=== PATIENT | male | born 1945 | race Caucasian/White ===

== ENCOUNTER → 2024-09-25 14:22 | Outpatient (BNVA) | payer MEDICARE, SELFPAY | PROVIDERS: PCP Physician Assistant; Referring Provider Physician Assistant; Visit Provider Student in an Organized Health Care Education/Training Program | DX: M17.12 Unilateral primary osteoarthritis, left knee (principal); S83.282A Other tear of lateral meniscus, current injury, left knee, initial encounter; X58.XXXA Exposure to other specified factors, initial encounter | CPT/HCPCS: 20610; 99203; J1010 ==

== ENCOUNTER 2024-10-06 01:16 | Outpatient (CLI) | payer MEDICARE, SELFPAY ==
--- NOTE | 2024-10-06 06:30 | DI.MRI_ITS ---
Exam(s) MR LOWER JOINT LT WO EXAM: MR LOWER JOINT LT WO CLINICAL HISTORY: PAIN,tear lateral meniscus lt knee,s83.282a. TECHNIQUE: Multiplanar multisequence MRI was performed. COMPARISON: CR XR KNEE 3V LT from 01/04/2024 FINDINGS: BONES: There is no fracture or contusion pattern. Bony spur noted at the anterior proximal tibia, a nterior to the ACL insertion. Spurs from the lateral femoral condyle and lateral tibial plateau. JOINTS: A moderate-sized joint effusion is present. Articular cartilage: Patellofemoral joint: Cartilage thinning over the lateral patellar facet. No extension down to bone . Medial femoral tibial joint: Articular mild cartilage thinning and irregularity. Lateral femoral tibial joint: Severe thinning of the cartilage extending down to involving underlyin g bone. LIGAMENTS/TENDONS: Anterior Cruciate: Unremarkable. Posterior Cruciate: Unremarkable. Medial Collateral:Unremarkable. Lateral Collateral ligament complex: Unremarkable. Extensor mechanism: Unremarkable. Medial retinaculum: Unremarkable. Lateral retinaculum: Unremarkable. Popliteus: Unremarkable. MENISCI: The medial meniscus shows degenerative signal changes greater in the body. The lateral meniscus shows focal linear tear in the anterior horn with adjacent small meniscal cyst. The body and lateral portion of the posterior horn are extremely diminutive. No displaced fragment s are identified. MUSCLES: Unremarkable. SOFT TISSUES: Metallic artifact is noted in the soft tissues lateral to the patellar tendon. IMPRESSION: Severe degenerative changes of the lateral femoral tibial joint with severe degenerative changes and superimposed tear of the lateral meniscus. DATA REPOSITORY:
== END 2024-10-06 01:36 ==
LOC: DI 01:17
PROVIDERS: PCP Physician Assistant; Visit Provider Student in an Organized Health Care Education/Training Program
DX: S83.282D Other tear of lateral meniscus, current injury, left knee, subsequent encounter (principal); X58.XXXD Exposure to other specified factors, subsequent encounter
CPT/HCPCS: 73721

== ENCOUNTER → 2024-10-27 09:01 | Outpatient (BNVA) | payer MEDICARE, SELFPAY | PROVIDERS: PCP Physician Assistant; Referring Provider Physician Assistant; Visit Provider Student in an Organized Health Care Education/Training Program | DX: S83.282D Other tear of lateral meniscus, current injury, left knee, subsequent encounter (principal); X58.XXXD Exposure to other specified factors, subsequent encounter; M17.12 Unilateral primary osteoarthritis, left knee | CPT/HCPCS: 99213 ==

== ENCOUNTER → 2024-12-29 10:18 | Outpatient (BNVA) | payer MEDICARE, SELFPAY | PROVIDERS: PCP Physician Assistant; Referring Provider Physician Assistant; Visit Provider Student in an Organized Health Care Education/Training Program | DX: M17.12 Unilateral primary osteoarthritis, left knee (principal); S83.282A Other tear of lateral meniscus, current injury, left knee, initial encounter; X58.XXXA Exposure to other specified factors, initial encounter | CPT/HCPCS: 99213 ==

== ENCOUNTER 2025-02-03 16:37 | Outpatient (REF) | payer MEDICARE, SELFPAY ==
[2025-02-03 16:47] LABS: ALT 36 U/L (16-63); AST 30 U/L (15-37); Albumin 4.1 g/dL (3.4-5.0); Alkaline Phosphatase 63 U/L (46-116); Anion Gap 9.5 mmol/L (3-11); BUN 21 mg/dL (7-18); Bilirubin, Total 0.7 mg/dL (0.2-1.0); CO2 28.5 mmol/L (21.0-32.0); Calcium 9.6 mg/dL (8.5-10.1); Calculated LDL 96 mg/dL (<100); Chloride 103 mmol/L (98-107); Cholesterol 192 mg/dL (<200); Estimated GFR 76.56 (mL/min/1.73m2); Glucose 96 mg/dL (74-106); HDL Cholesterol 70 mg/dL (>or=40); Potassium 3.9 mmol/L (3.5-5.1); Sodium 141 mmol/L (136-145); Total Protein 6.9 g/dL (6.4-8.2); Triglyceride 134 mg/dL (<150)
== END 2025-02-03 16:38 | disposition home or self-care (01) ==
LOC: NCHCN 16:37
PROVIDERS: PCP Physician Assistant; Visit Provider Physician Assistant
DX: E78.5 Hyperlipidemia, unspecified (principal)
CPT/HCPCS: 80053; 80061

== ENCOUNTER 2025-04-27 03:25 | Outpatient (CLI) | payer MEDICARE, SELFPAY ==
[2025-04-27 10:58] LABS: HCT 42.2 % (40.0-50.0); HGB 14.2 g/dL (13.5-17.5); MCH 30.6 pg (27.0-33.0); MCHC 33.6 % (32.0-36.0); MCV 91 fL (80-95); MPV 11.0 fL (8.0-11.0); Platelet Count 160 10^3/uL (130-400); RBC 4.64 10^6/uL (4.36-5.78); RDW 13.9 % (11.8-14.1); RDW-SD 46.4 fL; WBC 7.53 10^3/uL (4.4-10.8)
[2025-04-27 11:55] LABS: Anion Gap 9.8 mmol/L (3-11); BUN 26 mg/dL (7-18); CO2 26.2 mmol/L (21.0-32.0); Calcium 9.4 mg/dL (8.5-10.1); Chloride 104 mmol/L (98-107); Glucose 102 mg/dL (74-106); Potassium 4.2 mmol/L (3.5-5.1); Sodium 140 mmol/L (136-145)
== END 2025-04-27 03:26 | disposition home or self-care (01) ==
LOC: LBO 03:25
PROVIDERS: PCP Physician Assistant; Visit Provider Student in an Organized Health Care Education/Training Program
DX: Z01.818 Encounter for other preprocedural examination (principal); M17.12 Unilateral primary osteoarthritis, left knee
CPT/HCPCS: 36415; 80048; 85027

== ENCOUNTER 2025-04-27 11:58 | Outpatient (CLI) | payer MEDICARE, SELFPAY ==
--- NOTE | 2025-04-27 11:00 | DI.RAD_ITS ---
Exam(s) XR KNEE LT 1V XR STANDING ALIGNMENT EXAM: XR STANDING ALIGNMENT and XR knee LT 1 V CLINICAL HISTORY: TKR Planning. TECHNIQUE: 2D digital imaging was performed. Five images were obtained. COMPARISON: CR XR KNEE COMPLETE MIN 4V LT from 11/17/2021 CR XR KNEE 3V LT from 01/04/2024 CR XR KNEE LT 1V from 04/27/2025 FINDINGS: BONES: There is mild joint space narrowing of the hips bilaterally. In the right knee, small osteophytes are seen in the lateral femoral tibial joint. In the left knee, there is moderate narrowing of the lateral femoral tibial joint. There osteophytes seen at the posterior patella and the lateral femoral tibial joint. There is a small joint effusion. There is a small spurs seen at the anterior tibial plateau. The ankles are well maintained.There is no significant leg length discrepancy. SOFT TISSUE: Normal. IMPRESSION: Moderately severe degenerative changes seen in the left knee. DATA REPOSITORY: RADIATION DOSE DELIVERED:
== END 2025-04-27 11:59 | disposition home or self-care (01) ==
LOC: DIORS 11:58
PROVIDERS: PCP Physician Assistant; Visit Provider Physician Assistant
DX: Z01.818 Encounter for other preprocedural examination (principal); M17.12 Unilateral primary osteoarthritis, left knee
CPT/HCPCS: 99024; 73560; 77073

== ENCOUNTER 2025-05-06 07:11 | Day surgery (SDC) | payer MEDICARE, SELFPAY ==
--- NOTE | 2025-05-06 07:16 | W.PM.DSUDISC ---
Date of service: 05/06/25 Discharge Plan Disposition Patient Disposition: Home Condition: Good Discharge Details Reason For Visit: L TKR Attending Provider: Juvencio Zavaleta Primary Care Provider: Mark Zimmerman Home Meds and New Rx's Prescriptions: New celecoxib 200 mg capsule 200 mg PO BID Qty: 60 0RF aspirin 81 mg tablet,delayed release (DR/EC) 81 mg PO BID Qty: 60 0RF acetaminophen 500 mg tablet 1,000 mg PO TID Qty: 90 3RF pantoprazole 40 mg tablet,delayed release (DR/EC) 40 mg PO DAILY Qty: 14 0RF dexamethasone 4 mg tablet 4 mg PO DAILY Qty: 2 0RF docusate sodium 100 mg capsule 100 mg PO BID PRNQty: 28 0RF gabapentin 300 mg capsule 300 mg PO QHS Qty: 14 0RF oxycodone 5 mg tablet 5 mg PO Q4H PRNQty: 18 0RF Continued amlodipine 5 mg tablet 5 mg PO DAILY Patient Comments: Per pt.states he takes this at noon atorvastatin 40 mg tablet 40 mg PO DAILY finasteride 5 mg tablet 5 mg PO DAILY albuterol sulfate 90 mcg/actuation HFA aerosol inhaler 2 puff inhalation Q6H PRN losartan 25 mg tablet 25 mg PO DAILY No Action celecoxib [Celebrex] 200 mg capsule 200 mg PO DAILY aspirin [Aspirin Childrens] 81 mg tablet,chewable 81 mg PO BID Discharge Instructions Additional Instructions: Total Knee Discharge Instructions Activity: The most important activity is to walk and to work on gentle motion (both flexion and extension). You should try to take short walks a few times a day. It is important that when resting you work on keeping the knee straight. Avoid putting a pillow behind the knee as this will encourage flexion. Work on range of motion exercises as provided by Physical Therapy. - Start outpatient physical therapy within 2 weeks. - You should wear the ARCADIO hose on both legs for 2 weeks. You may remove these at night. You may also use any compression sock in place of the ARCADIO hose. - Utilize [employer] to review exercises, see videos on exercises and obtain basic information pertaining to your surgery and your recovery. Dressing: Remove the Davi wrap by 2 days after your surgery and put on the ARCADIO stocking given to you from the hospital. Keep the surgical dressing (underneath the DAVI wrap) in place for at least one week. After the first week it may be removed and replaced with light gauze and tape or nothing. The wound and dressing may get wet after 3 days but avoid soaking the dressing or otherwise it will need to be changed. Many people prefer covering the dressing with cling wrap (saran wrap) to minimize it from getting soaked. If it gets wet, just pat dry. If it starts to peel off then it will need to be changed. Medications: - You should take Tylenol and anti-inflammatory Celebrex as your primary pain control medications. If the Celebrex is too expensive or not covered, please call the office for another alternative (Advil/Ibuprofen or Naproxen/Aleve) - You have been prescribed a stronger pain medication Oxycodone for breakthrough pain, take as needed as prescribed. - You have also been prescribed a stomach acid reduction agent Pantoprozole to help reduce stomach acid and reflux. - You have been prescribed Gabapentin to take at night for restlessness and nerve pain. - You will be taking Aspirin 81mg twice a day for DVT prevention unless instructed otherwise. - You have also been prescribed Decadron to take to control post-operative nausea and pain. You will start this tomorrow. - If you have constipation you should take Colace or Miralax (both azia-[id number]-noxzxxw). It takes most people 3-4 days to have a bowel movement. Follow-up: 2 weeks If you have any acute concerns or questions, please do not hesitate to contact the office at [phone]. You may contact Dr. Zavaleta with any questions after hours through the hospital at [phone] or on his cell phone at [phone]. Referrals: Juvencio Zavaleta MD [ [facility] STAFF PHYSICIAN, Orthopaedic Surgical] Equipment/Supplies: Walker Activity:: Activity as Tolerated Shower/Bathe:: 72 hours Diet:: As Tolerated Discharge Orders Discharge Orders: Discharge Order (Routine); Ordered 05/06/25 Ordered By: Chandrakant Ribeiro DS: Diagnosis Discharge Diagnosis (1) Osteoarthritis of left knee: Status: Acute
[2025-05-06 07:55] VITALS: BP 156/86; PULSE 71; RESP 18; TEMP 36.5; O2SAT 96
--- NOTE | 2025-05-06 08:00 | RT.EKG_ITS ---
APPROVED REPORT Exam: Resting ECG Reason for Exam: New murmur Patient Location: O HR:57 bpm ECG Measurements Heart Rate 57 AXIS AK 212 P -8 QRSd 150 QRS 37 QT 466 T 20 QTc 452 Conclusion Sinus bradycardia...rate< 60 Ventricular premature complex...V complex w/ short R-R interval Borderline prolonged AK interval...AK >212, V-rate 50- 90 Right bundle branch block...QRSd>120, terminal axis(90,270)
--- NOTE | 2025-05-06 08:56 | PDOC.ANES ---
Date of service: 05/06/25 Time of Service: 08:15 Anesthesia Note Report Anesthesia Note: KEVIN Tate RN, reported new heart murmur. Auscultation confirms murmur with second inspector materials and processes, Tariq, also confirming. Patient has no EKG or Echo on file and patient says his last would have been before his carotid surgery which was in 2017. EKG done today shows RBBB, no prior EKG to compare. Message left at his primary care office for them to follow-up with him and that they should schedule an echo before he can be rescheduled for surgery. Patient informed of all of the above and the reasoning for post-poning his surgery today. Patient agrees to plan.
== END 2025-05-06 07:12 | disposition home or self-care (01) ==
PROVIDERS: PCP Physician Assistant; Visit Provider Student in an Organized Health Care Education/Training Program
DX: Z53.8 Procedure and treatment not carried out for other reasons (principal); R01.1 Cardiac murmur, unspecified
CPT/HCPCS: J0665; J1100; J2003; J2401; J2405; J2704; J3475

== ENCOUNTER 2025-07-01 11:16 | Day surgery (SDC) | payer MEDICARE, SELFPAY ==
[2025-07-01] VITALS (16 sets, daily range): BP systolic 124–167; BP diastolic 54–84; PULSE 59–69; RESP 9–18; TEMP 36–36.5; O2SAT 94–99; BMI 29.9
--- NOTE | 2025-07-01 07:34 | W.PM.DSUDISC ---
Date of service: 07/01/25 Discharge Plan Disposition Patient Disposition: Home Condition: Good Discharge Details Reason For Visit: L TKR Attending Provider: Juvencio Zavaleta Primary Care Provider: Mark Zimmerman Home Meds and New Rx's Prescriptions: New celecoxib 200 mg capsule 200 mg PO BID Qty: 60 0RF aspirin 81 mg tablet,delayed release (DR/EC) 81 mg PO BID Qty: 60 0RF acetaminophen 500 mg tablet 1,000 mg PO TID Qty: 90 3RF dexamethasone 4 mg tablet 4 mg PO DAILY Qty: 2 0RF docusate sodium 100 mg capsule 100 mg PO BID PRNQty: 28 0RF gabapentin 300 mg capsule 300 mg PO QHS Qty: 14 0RF oxycodone 5 mg tablet 5 mg PO Q4H PRNQty: 18 0RF Continued amlodipine 5 mg tablet 5 mg PO DAILY Patient Comments: Per pt.states he takes this at noon atorvastatin 40 mg tablet 40 mg PO DAILY finasteride 5 mg tablet 5 mg PO DAILY losartan 25 mg tablet 25 mg PO DAILY pantoprazole 40 mg tablet,delayed release (DR/EC) 40 mg PO DAILY Qty: 14 0RF celecoxib [Celebrex] 200 mg capsule 200 mg PO DAILY epinephrine [EpiPen] 0.3 mg/0.3 mL auto-injector 0.3 ml subcut ONCE Rx Instructions: as a single dose; may repeat once Discontinued aspirin [Aspirin Childrens] 81 mg tablet,chewable 81 mg PO BID Discharge Instructions Additional Instructions: Total Knee Discharge Instructions Activity: The most important activity is to walk and to work on gentle motion (both flexion and extension). You should try to take short walks a few times a day. It is important that when resting you work on keeping the knee straight. Avoid putting a pillow behind the knee as this will encourage flexion. Work on range of motion exercises as provided by Physical Therapy. - Start outpatient physical therapy within 2 weeks. - You should wear the ARCADIO hose on both legs for 2 weeks. You may remove these at night. You may also use any compression sock in place of the ARCADIO hose. - Utilize [employer] to review exercises, see videos on exercises and obtain basic information pertaining to your surgery and your recovery. Dressing: Remove the Davi wrap by 2 days after your surgery and put on the ARCADIO stocking given to you from the hospital. Keep the surgical dressing (underneath the DAVI wrap) in place for at least one week. After the first week it may be removed and replaced with light gauze and tape or nothing. The wound and dressing may get wet after 3 days but avoid soaking the dressing or otherwise it will need to be changed. Many people prefer covering the dressing with cling wrap (saran wrap) to minimize it from getting soaked. If it gets wet, just pat dry. If it starts to peel off then it will need to be changed. Medications: - You should take Tylenol and anti-inflammatory Celebrex as your primary pain control medications. If the Celebrex is too expensive or not covered, please call the office for another alternative (Advil/Ibuprofen or Naproxen/Aleve) - You have been prescribed a stronger pain medication Oxycodone for breakthrough pain, take as needed as prescribed. - You will continue your stomach acid reduction agent Pantoprozole to help reduce stomach acid and reflux. - You have been prescribed Gabapentin to take at night for restlessness and nerve pain. - You will be taking Aspirin 81mg twice a day for DVT prevention unless instructed otherwise. - You have also been prescribed Decadron to take to control post-operative nausea and pain. You will start this tomorrow. - If you have constipation you should take Colace or Miralax (both uifz-vry-ejoacpt). It takes most people 3-4 days to have a bowel movement. Follow-up: 2 weeks If you have any acute concerns or questions, please do not hesitate to contact the office at [phone]. You may contact Dr. Zavaleta with any questions after hours through the hospital at [phone] or on his cell phone at [phone]. Stand Alone Forms: Portal Information Equipment/Supplies: Walker Activity:: Activity as Tolerated Shower/Bathe:: 72 hours Diet:: As Tolerated Discharge Orders Discharge Orders: Discharge Order (Routine); Ordered 07/01/25 Ordered By: Chandrakant Ribeiro DS: Diagnosis Discharge Diagnosis (1) Osteoarthritis of left knee: Status: Acute
--- NOTE | 2025-07-01 11:56 | W.PREOPHP ---
Assessment and Plan Assessment and plan (1) Osteoarthritis of left knee: Status: Resolved Assessment and plan: Hussein has arthritis of the left knee and has exhausted nonoperative options. Please see the previous office note for complete detailed history. He is here today for left knee replacement. I had a long discussion in regards to surgical replacement of the knee. I reviewed the necessary time for rehabilitation following the procedure. Furthermore, I went over in detail the possible complications of knee replacement. These include but are not limited to bleeding, infection, pain, stiffness, weakness, damage to nerves, damage to vessels, damage to muscle and tendon, fracture, leg length inequality, wound healing complications, instability, component loosening, and blood clot. Questions were answered. I again expressed that this is a surgery to improve functional quality of life. After a review of the presented information and risks, Hussein desired to proceed. He has known aortic stenosis now and has been termed safe to proceed. History of Present Illness History of Present Illness Chief Complaint: Left Knee DJD Narrative: Hussein is a 80-year-old male who has known arthritis about his left knee. He has a valgus deformity. He was scheduled for left knee replacement about 2 months ago but this was canceled due to a new diagnosed murmur. Echocardiogram show that he has moderate aortic stenosis. Has been evaluate for this at this point this will be monitored. He denies chest pain or shortness of breath. No recent illness or sick contacts. He has no questions about the left knee replacement and is anxious to proceed. Review of Systems All systems reviewed & are unremarkable except as noted in HPI and below PFSH All Active Problems History of total left knee replacement (Acute) Tear of lateral meniscus of left knee (Acute) Neurogenic dysfunction of the urinary bladder (Acute) BPH (benign prostatic hyperplasia) (Chronic) Asthma (Chronic) Carotid artery stenosis (Acute) S/P R CEA AT [facility] [place] 2016 Essential hypertension (Acute) Erectile dysfunction (Acute) Hyperlipemia (Acute) Surgical History History of eye surgery retinal attachment History of colonoscopy Spermatocele of epididymis exc. spermatocele History of cataract extraction H/O carotid endarterectomy right Social History Smoking/Tobacco Use Status: Former Tobacco Use Quit Date: 07/23/80 Smoking risk assessment performed?: Yes Alcohol Intake: never Drug use: Never Substance use type: does not use Details: t-21, alcohol Housing: house Do you feel safe at home: Yes Do you feel safe in your relationship?: Yes Meds Allergies and Home Medications Allergies Allergy/AdvReac Type Severity Reaction Status Date / Time banana Allergy Severe Anaphylaxis Verified 06/30/25 13:03 Home Medications ?Medication ?Instructions ?Recorded ?Confirmed ?Type amlodipine 5 mg tablet 5 mg PO DAILY 07/31/24 06/30/25 History atorvastatin 40 mg tablet 40 mg PO DAILY 07/31/24 06/30/25 History finasteride 5 mg tablet 5 mg PO DAILY 07/31/24 06/30/25 History losartan 25 mg tablet 25 mg PO DAILY 04/27/25 06/30/25 History celecoxib 200 mg capsule (Celebrex) 200 mg PO DAILY 05/06/25 06/30/25 History pantoprazole 40 mg tablet,delayed 40 mg PO DAILY #14 tabs 05/06/25 06/30/25 Rx release epinephrine 0.3 mg/0.3 mL 0.3 ml subcut ONCE 06/30/25 06/30/25 History injection, auto-injector (EpiPen) acetaminophen 500 mg tablet 1,000 mg (2 x 500 mg) PO TID #90 07/01/25 Rx tabs aspirin 81 mg tablet,delayed 81 mg PO BID #60 tabs 07/01/25 Rx release celecoxib 200 mg capsule 200 mg PO BID #60 caps 07/01/25 Rx dexamethasone 4 mg tablet 4 mg PO DAILY #2 tabs 07/01/25 Rx docusate sodium 100 mg capsule 100 mg PO BID PRN #28 caps 07/01/25 Rx gabapentin 300 mg capsule 300 mg PO QHS #14 caps 07/01/25 Rx oxycodone 5 mg tablet 5 mg PO Q4H PRN #18 tabs 07/01/25 Rx Exam Const General: cooperative, healthy appearing, comfortable and no acute distress Resp Auscultation: clear to auscultation bilaterally Cardio Rate: regular rate Rhythm: regular rhythm
[2025-07-01] MEDS: Lactated Ringers 1,000 ML 80 ML IV (12:15)
--- NOTE | 2025-07-01 12:27 | W.ANESPRE ---
General Info Date of Service Date Performed: 07/01/25 Height: 6 ft 2 in Weight: 105.9 kg Body Mass Index (BMI): 29.9 Surgical Procedure: Operation Date: 07/01/25 13:40 Proposed Procedure Side Surgeon p Knee Total Arthroplasty w/OrthAlign Left Juvencio Zavaleta MD Meds Allergies and Home Medications Allergies Allergy/AdvReac Type Severity Reaction Status Date / Time banana Allergy Severe Anaphylaxis Verified 07/01/25 12:10 Home Medication ?Medication ?Instructions ?Recorded amlodipine 5 mg tablet 5 mg PO DAILY 07/31/24 atorvastatin 40 mg tablet 40 mg PO DAILY 07/31/24 finasteride 5 mg tablet 5 mg PO DAILY 07/31/24 losartan 25 mg tablet 25 mg PO DAILY 04/27/25 celecoxib 200 mg capsule (Celebrex) 200 mg PO DAILY 05/06/25 pantoprazole 40 mg tablet,delayed 40 mg PO DAILY #14 tabs 05/06/25 release epinephrine 0.3 mg/0.3 mL 0.3 ml subcut ONCE 06/30/25 injection, auto-injector (EpiPen) acetaminophen 500 mg tablet 1,000 mg (2 x 500 mg) PO TID #90 07/01/25 tabs aspirin 81 mg tablet,delayed 81 mg PO BID #60 tabs 07/01/25 release celecoxib 200 mg capsule 200 mg PO BID #60 caps 07/01/25 dexamethasone 4 mg tablet 4 mg PO DAILY #2 tabs 07/01/25 docusate sodium 100 mg capsule 100 mg PO BID PRN #28 caps 07/01/25 gabapentin 300 mg capsule 300 mg PO QHS #14 caps 07/01/25 oxycodone 5 mg tablet 5 mg PO Q4H PRN #18 tabs 07/01/25 valsartan 320 1 tab PO DAILY 07/01/25 mg-hydrochlorothiazide 12.5 mg tablet Current Visit Medications: Current Medications Generic Name Dose Route Start Last Admin Trade Name Freq PRN Reason Stop Dose Admin Acetaminophen 1,000 mg 07/01/25 06:00 Acetaminophen 500 Mg Tab PO 07/01/25 23:59 PREOP BRENDAN Acetaminophen 1,000 mg 07/01/25 07:33 Acetaminophen 500 Mg Tab PO 07/31/25 07:32 TID PRN PRN Analgesia Celecoxib 400 mg 07/01/25 06:00 Celecoxib 200 Mg Cap PO 07/01/25 23:59 PREOP BRENDAN Docusate Sodium 100 mg 07/01/25 07:33 Docusate Sodium 100 Mg Cap PO 07/31/25 07:32 BID PRN PRN Constipation Gabapentin 300 mg 07/01/25 06:00 Gabapentin 300 Mg Cap PO 07/01/25 23:59 PREOP BRENDAN Ringer's Solution 1,000 mls @ 80 mls/hr 07/01/25 06:00 IV 07/01/25 23:59 INFUSION BRENDAN Cefazolin Sodium/Dextrose 2 gm in 50 mls @ 100 mls/hr 07/01/25 06:00 Ancef Duplex IVPB 07/01/25 23:59 PREOP BRENDAN Tranexamic Acid/Sodium Chloride 1,000 mg in 100 mls @ 600 mls/hr 07/01/25 06:00 IVPB 07/01/25 23:59 PREOP BRENDAN Ondansetron HCl 4 mg 07/01/25 07:33 Ondansetron 4 Mg/2 Ml Vial IVP 07/31/25 07:32 Q6H PRN PRN Nausea Oxycodone HCl 0 mg 07/01/25 07:33 Oxycodone 5 Mg Tab PO 07/31/25 07:32 Q3H PRN PRN Pain Polyethylene Glycol 17 gm 07/01/25 07:33 Polyethylene Glycol 3350 17 Gm Packet PO 07/31/25 07:32 BID PRN PRN Constipation Sodium Chloride 0 ml 07/01/25 06:00 Normal Saline Flush 10 Ml Syr IV 07/01/25 23:59 PRN PRN Sodium Chloride 0 ml 07/01/25 06:00 Normal Saline 10 Ml Vial IJ 07/01/25 23:59 DIRECTED PRN Sterile Water 0 ml 07/01/25 06:00 Water,Injection,Sterile 10 Ml Vial IJ 07/01/25 23:59 DIRECTED PRN PFSH Active Problems Active Problems: Problem Status Onset Code History of total left knee replacement Acute Z96.652 Tear of lateral meniscus of left knee Acute S83.282A Neurogenic dysfunction of the urinary bladder Acute N31.9 BPH (benign prostatic hyperplasia) Chronic N40.0 Asthma Chronic J45.909 Carotid artery stenosis Acute I65.29 Essential hypertension Acute I10 Erectile dysfunction Acute N52.9 Hyperlipemia Acute E78.5 Surgical History Surgical History History of eye surgery retinal attachment History of colonoscopy Spermatocele of epididymis exc. spermatocele History of cataract extraction H/O carotid endarterectomy right Tobacco Smoking/Tobacco Use Status: Former Tobacco Use Passive smoking exposure: No Alcohol Alcohol Intake: current Alcohol intake frequency: holidays/special occasions only Substance Use Substance use: Never Substance use type: does not use Details: t-21, alcohol Vital Signs and Lab Results Vital Signs Most Recent Vital Signs in EMR: Most Recent Vital Signs Temp Pulse Resp BP Pulse Ox 36.5 C 63 16 136/62 99 07/01/25 11:45 07/01/25 11:45 07/01/25 11:45 07/01/25 11:45 07/01/25 11:45 Imaging and Studies Imaging and Studies Study information below may be from another EMR and interpreted by another provider. Please see original notes in EMR for more complete details. EKG Summary: 05/06/25 Conclusion Sinus bradycardia...rate< 60 Ventricular premature complex...V complex w/ short R-R interval Borderline prolonged KS interval...KS >212, V-rate 50- 90 Right bundle branch block...QRSd>120, terminal axis(90,270) Echocardiogram Summary: 05/08/25 EF 65%, mod , mean gradient 14mmHg, PARESH 1.5 cm2 Trace MR, TR, KS X-Ray Summary: CXR 05/19/25 WNL Anesthesia Assessment and Plan Anesthesia History Personal History: No History of Anesthesia Complications and Malignant Hyperthermia Family History: No Family History of Anesthesia Complications Exercise Tolerance Exercise Tolerance: Metabolic Equivalents>4 Pertinent Negatives Pertinent Negatives: No Symptoms of GERD, No Major Cardiovascular Symptoms or Complaints, No Major Pulmonary Symptoms or Complaints and No History of CVA/TIA Cardiac & Pulmonary Exam Cardiac Exam: Normal S1/S2 Heart Sounds Pulmonary Exam: Clear Bilateral Breath Sounds Implantable Cardiac Device Does patient have a Pacemaker or an ICD?: No Airway Exam Known Difficult Airway: No Mallampati Class: 2 Mouth Opening: Normal (> 3cm) Thyromental Distance: Greater than 3 cm Neck Range of Motion: Full ROM Neck Circumference: Normal Teeth Condition: Normal Dentition ASA Classification ASA Score: ASA 2 Emergency Case?: No NPO Status NPO Status: NPO Clears >2 hours, Solids >8 hours Anesthesia Plan Resuscitation Status: Full Code Anesthesia Technique: Spinal Anesthesia Airway Planned: Natural Airway Pain Management: Surgeon and patient request nerve block Monitors Used: Standard Monitors Preoperative Comments:: Self catheterized in last 1/2 hour
[2025-07-01] MEDS: Acetaminophen 500 MG TAB 1000 MG PO (12:33)
[2025-07-01] MEDS: Gabapentin 300 MG CAP PO (12:33)
[2025-07-01] MEDS: Celecoxib 200 MG CAP 400 MG PO (12:33)
[2025-07-01] MEDS: ceFAZolin 2 GM/50 ML BAG IVPB (13:11)
--- NOTE | 2025-07-01 13:13 | ROE_ITS ---
Operative Note Operative Note PRE-OP DIAGNOSIS: Left Knee Osteoarthritis with Valgus Deformity POST-OP DIAGNOSIS: same PROCEDURE: Left Total Knee Replacement with Intraoperative Navigation SURGEON: Juvencio Zavaleta MESSENGER FLOORPERSON: Aleyda Ribeiro ANESTHESIA TYPE: Spinal Refer to Anesthesia Record ESTIMATED BLOOD LOSS: 100 PATHOLOGY: none sent TOURNIQUET TIME: 0 COMPLICATIONS: None Patient was transported to: PACU Patient's condition: stable Implants: 1. Depuy Attune Cementless Cruciate Retaining Femoral Component, Size 8 2. Depuy Attune Cementless Fixed Bearing Tibial Component, Size 7 3. Depuy Attune 8x10mm CR/FB Poly Indications: I have seen Hussein in clinic for symptoms of LEFT knee arthritis, confirmed with radiographic findings. He has exhausted nonoperative methods and was having significant limitations in daily function and desired better function and less pain. I discussed the technical details of a knee replacement. I explained the risks of the procedure to include, but not limited to, bleeding, infection, pain, stiffness, fracture, damage to nerves and vessels, damage to muscles and tendons, loosening, need for repeat procedure, blood clot and cardiopulmonary demise. Despite these risks, Hussein elected to proceed. Findings: There was significant signs of arthritis throughout lateral compartment primarily. There were some less severe changes seen medially and in the trochlea.. Procedure Description: Hussein was greeted in the preoperative holding area where the correct side was identified and marked. The consent was reviewed with the patient and signed. The history and physical was updated. All questions were answered. Preoperative mediacations were administered: Acetaminophen 1000mg, Celebrex 400mg, and Gabapentin 300mg. An adductor canal block was then administered by the anesthesia team in the DSU. He was taken back to the operating room. A spinal anesthestic was then administered. The patient was placed into the supine position on the operating room table. Posts were placed for positioning during the procedure. All bony prominences were well padded. Prophylactic antibiotics in the form of Cefazolin were administered. 1g of Tranxemic Acid was given intravenously within 30 min utes of incision. The left leg was then prepped with Chloraprep and draped in a standard fashion with impervious stockinette. A second prep with Chloraprep was performed prior to application of Iodine impregnated skin protection. A timeout to confirm correct identity, side and site, procedure, allergies, anesthesia, and medical concerns was performed. With the knee in some flexion, a midline incision was made overlying the knee. Full thickness skin flaps were raised once the extensor mechanism was encountered. These were raised medially and laterally. Any bleeding was controlled with electrocautery. Once the extensor mechanism was fully exposed, a medial parapatellar arthrotomy was performed in a flexed position. All bleeding from the arthrotomy and the geniculate arteries was coagulated. A medial subperiosteal peel was performed with electrocautery to the midcoronal plane. The fat pad was removed while keeping the patellar tendon protected. The anterior distal femur synovium was removed for later visualization. The ACL and PCL were resected and the anterior horn of the lateral meniscus was transected. The knee was then flexed with the patella everted. Large osteophytes from the tibia were removed. Large osteophytes from the femur were removed. A single starting pin was then placed 1cm anterior to the PCL insertion and the notch in the direction of the femoral head. The OrthoAlign device was applied over the pin. It was oriented to be in line with the epicondylar axis and the trochlear groove. It was then pinned into place. The navigation computer was then turned on and calibrated. The distal femur cut was set at 0 degrees varus and 3.5 degrees flexion. The distal femur cutting guide then was positioned for a 9mm cut. The distal femur was cut with an oscillating saw while protecting the soft tissues. The tibia was then addressed. The OrthoAlign device was placed over the tibial tubercle and medial tibia and secured into position. Once again, OrthoAlign was calibrated and then set for a 1 degree varus cut and 5.5 degrees of posterior slope. With this locked into position, the cut thickness stylus was used to assess cut thickness. The lateral side, most involved side, was set for a 4mm cut. This was then held in position and pinned into place with 2 additional pins and a cross pin for stability. The medial and lateral collateral ligaments were protected and the cut was performed. With this completed, it was assessed and noted to be of appropriate dimensions. The guide and OrthoAlign was removed. A spacer block was inserted and the knee was brought into extension to ensure enough space was present. . The Orthoalign gap balancing device was then placed in extension. This was used to ensure that the ligaments were properly balanced with up to 2 to 3 mm laxity laterally compared medially. The extension gap was measured as 22mm. The knee was then brought into 90 degrees of flexion and the ligament vertical contour band saw operator was once again placed. Under the same amount of force the flexion gap was measured. The Attune specific jig was placed and the flexion gap was made to match the extension gap. The femur was then sized as a size 8. The 4-in-1 cutting guide was the placed. An renetta wing was used to confirm appropriate position of the anterior cut to avoid notching. This cutting guide was ensured to be flush on the cut surface and then pinned into place with headed pins. While protecting the soft tissues, quad tendon, and collateral ligaments, the anterior and posterior cuts were performed with a saw. The central two pins were removed and the posterior and anterior chamfers were cut next. The notch-cutting guide was placed. This was pinned to lateralize the femoral component as much as possible while keeping it flush on the cut surface. This was then pinned into position. A saw was used to make the notch cut. A rasp smoothed the cut surfaces. The medial and lateral menisci were removed. A t rial femoral component was then inserted, impacted down to the cut surfaces, and the lug holes were drilled. A provisional trial tibial component was placed and the knee was brought through range of motion. The polyethylene was trialed until there was good flexion and extension with excellent stability to the medial and lateral collaterals. The patella was tracking without thumbs. A size 10mm polyethylene component provided the best range of motion and stability with less than 2mm gapping with medial and lateral stress and full extension without significant hyperextension. The tibial cut surface was fully exposed. The tibia was then sized as a 7. The tibia had been previously marked during trialing to correspond to the center of the tibial component to help with rotation. The trial was aligned to this aleyda, approximately rotated to the medial 1/3rd of the tibial tubercle. The trial was pinned into place. The tibia was prepared with a reamer and a keel punch and lug holes. The trial components were removed. The final components were opened on the back table. The periosteal and capsular tissues, especially posteriorly, around the knee were then systematically injected with a periarticular cocktail consisting of 246mg of Ropivacaine, 0.5mg of Epinephrine, 0.08mg of Clonidine, and 30mg of Ketorolac, diluted to 100cc. Then, the knee components were placed. Starting with the tibial component, the tibia was subluxed anteriorly and the lug holes of the component were lined up. The tibia was then impacted with an impactor and mallet until the tibial component was in contact with the tibia. Then, the femoral component was inserted. The lug holes were aligned and the component was impacted into position. The final polyethylene component was inserted. The knee was irrigated with Surgiphor Betadine solution. This was allowed to sit in the knee for 3 minutes and then it was thoroughly irrigated out with saline. The knee was then taken through range of motion. The patella was tracking with a no-thumbs technique. A complete synovectomy of the patella was performed. Any prominence to the lateral facet was resected with a rongeur. There was some lateral tilting of the patella and therefore once the knee was in flexion a partial lateral retinacular release was performed. The capsule was then reapproximated with a No. 1 Vicryl at multiple locations. The capsule was finally closed with a No. 2 Stratafix, barbed suture. Deep tissues were then reapproximated with 0 Vicryl and 2-0 Vicryl. The skin was closed with a running 3-0 Monocryl in a subcuticular fashion. This was reinforced with skin glue. A Mepilex silver dressing was applied along with a [id number] GUILLERMO wrap. A CryoCuff was applied. Hussein was transferred to the hospital bed without difficulty an suffering no apparent complication. Hussein has a good prognosis. Physical therapy will start today and without restrictions, weight-bearing as tolerated. Aspirin 81mg BID will be used for DVT prophylaxis. Date of Procedure: 07/01/25
[2025-07-01] MEDS: TRANEXAMIC ACID/SOD. CHL. 1,000 MG/100 ML BAG 600 MG IVPB (13:26)
[2025-07-01] MEDS: ROPIvacaine/EPI/CLONIDINE/KET 50 ML SYRINGE IJ (13:48)
--- NOTE | 2025-07-01 13:48 | W.ANESNERVE ---
Nerve Block Single Injection Procedure Date and Time Date Performed: 07/01/25 Procedure Start: 12:53 Location Where Procedure Performed Procedure Location: Day Surgery Unit Reason Performed: Postoperative Analgesia Requesting Provider: Juvencio Zavaleta Timeout Performed Timeout Performed: Yes Monitoring Used ECG, Blood Pressure, SpO2 and See EMR for corresponding vital signs Sterility Sterility: Hand Hygiene, Surgical Cap, Surgical Mask, Sterile Gloves, Sterile Drape/Sheet and Chlorhexidine Sedation Given During Procedure Sedation Given (Indicate Dose Given): No Sedation given Patient Mental Status Patient Mental Status: Awake Nerve Block 1st Nerve Block: Laterality: Left Block Type: Adductor Canal Ultrasound Image Saved?: Yes Needle / Catheter Used: 100mm SonoPlex II Local Anesthetic Bolus (Indicate Dose Given): Lidocaine used for local infiltration of skin, Injected in 3-5ml increments after negative blood aspiration, Bupivacaine 0.25% Dose:: 10 ml and Exparel Dose:: 10 ml Additives (Indicate Dose Given): None Ultrasound: Sterile probe cover and gel used Nerve Stimulator: Supplement to Ultrasound use and No twitch or parasthesia noted < 0.5 mA Paresthesia: None Procedure Tolerated: No Complications and Patient tolerated well Procedure Outcome: Successful Performed By: Jessica Ortiz
--- NOTE | 2025-07-01 16:11 | W.ANESPOSTOP ---
Postoperative Evaluation Date, Time and Location Date Performed: 07/01/25 Time Performed: 16:11 Patient Location: Day Surgery Unit Vital Signs Most Recent Imported Vital Signs: Most Recent Vital Signs Temp Pulse Resp BP Pulse Ox 36 C L 62 16 156/64 H 97 07/01/25 15:40 07/01/25 15:40 07/01/25 15:40 07/01/25 15:40 07/01/25 15:40 Pain Score Most Recent Pain Score: Most Recent Pain Score Pain Level 0 07/01/25 15:40 Assessment Mental Status: Awake (Alert & Oriented to Patient Baseline) Airway and Respiratory Function: Patent airway with normal (patient baseline) respiratory exam Cardiovascular Function: Hemodynamically Stable Hydration Status: Adequately Hydrated Nausea & Vomiting: No Nausea or Vomiting Pain: Pt. Denies Any Pain Peripheral Nerve Block: Regional nerve block not resolved at time of post operative discharge
--- NOTE | 2025-07-01 16:42 | PT.INIE ---
PT Notes Visit Reasons: L TKR Physical Therapy Day Surgery Initial Evaluation Date: 07/01/2025 Referring Doctor: ALEKSANDRA Friedman PT Orders: PT CONSULT: S/P Ortho surgery Precautions: WBAT on the left LE with AD. Patient Profile/Admitting Diagnosis: Lane is an 80-year-old male with degenerative joint disease of the left knee and status post left total knee arthroplasty on postoperative day 0. PMHX: All Active Problems History of total left knee replacement (Acute) Tear of lateral meniscus of left knee (Acute) Neurogenic dysfunction of the urinary bladder (Acute) BPH (benign prostatic hyperplasia) (Chronic) Asthma (Chronic) Carotid artery stenosis (Acute) S/P R [facility] AT [facility] [place] 2017Essential hypertension (Acute) Erectile dysfunction (Acute) Hyperlipemia (Acute) Surgical History History of eye surgery retinal attachmentHistory of colonoscopy Spermatocele of epididymis exc. 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 Fluent in [place], Russ[place], and Serbian. Lives with in a private home with 4 steps to enter with a rail on 1 side. Equipment Owned/DME: [facility] Subjective: Reported 1/10 pain in the left knee at rest and with movement. Denied headache, chest pain, and lightheadedness throughout session. Objective: General Observation: Davi wraps to left LE. Cryo/Cuff to left knee. TDS to right leg and foot Mental Status: A and O x 4 Pain: 1/10 in the left at rest and with movement ROM: Right Lower Extremity: Hip flexion WFL. Hip abduction WFL. Knee flexion WFL. Ankle dorsiflexion WFL. Ankle plantarflexion WFL. Left Lower Extremity: Hip flexion WFL. Hip abduction WFL. Knee flexion 0-100 degrees. Ankle dorsiflexion WFL. Ankle plantarflexion WFL. Strength: Right Lower Extremity: Hip flexors 5/5. Hip abductors 5/5. Knee flexors 5/5. Knee extensors 5/5. Ankle dorsiflexors 5/5. Ankle plantarflexors 5/5. Left Lower Extremity:Hip flexors 4/5. Hip abductors 4/5. Knee flexors 3-/5. Knee extensors 4-/5. Ankle dorsiflexors 5/5. Ankle plantarflexors 5/5. Sensation: Intact as to pain and light pressure in bilateral lower extremities Bed Mobility/Transfers: Minimal cueing provided for use of B hands as needed for support, movement sequence, AD management, and posture to reduce fall risk and minimize pain report Supine to sit stand by assist Sit to stand contact-guard assist Stand to sit stand by assist with FWW Bed to chair stand by assist with FWW Gait: Facilitate safe and correct performance of level surface ambulation covering a distance of 150 feet using front wheeled walker with standby assist and minimal verbal cueing for limb movement sequence, AD management, weight distribution, and posture to minimize pain report and reduce fall risk. Step through gait pattern. Stairs: Guided patient with safe and correct negotiation of 3 x 4 inch steps and 2 x 6 inch steps while holding onto bilateral rails with step-to gait pattern requiring minimal verbal cueing for limb movement sequence, hand placement, increased flexion in the left knee during each ascent, and posture to minimize pain report and reduce fall risk. Balance: Static Sitting: Normal Dynamic Sitting: Normal Static Standing: Fair Dynamic Standing: Fair Special Tests: Mobility Limitations Standardized Measure [facility] 6 clicks Basic Mobility Inpatient Short Form: Raw Score: 23 CMS Score: 11% deficit Informed Consent/Education: Patient instructed in purpose of PT consult. Packet containing TKA exercise protocol has been given to patient. Education and training on initial set of exercises that can be done at home have been completed with patient. Trained patient with correct performance of exercises below to maximize motor control, joint flexibility, soft tissue extensibility of the L knee musculature: Access Code: [email or web address] URL: [email or web address] Date: 02/13/2023 Prepared by: Elida Cole Exercises - Supine Quad Set - 1 x daily - 7 x weekly - 1 sets - 10 reps - 5 hold - Supine Heel Slide - 1 x daily - 7 x weekly - 1 sets - 10 reps - 5 hold - Supine Ankle Pumps - 1 x daily - 7 x weekly - 1 sets - 10 reps - 5 hold - Small Range Straight Leg Raise - 1 x daily - 7 x weekly - 1 sets - 10 reps - 5 hold - Seated September - 1 x daily - 7 x weekly - 1 sets - 10 reps - 5 hold Assessment: Patient required the use of a front wheeled walker for all mobility ADL performance to maximize independence and reduce fall risk. Patient presents with clinical signs and symptoms consistent with current/admitting diagnoses that have resulted to mobility limitations, gait instability, generalized weakness, and impairment of motor control as demonstrated by the following impairment level findings: 1. Decreased strength to left knee major muscle groups 2. Impaired standing balance 3. Limitation of joint range of motion in left knee Impairments are contributing to the following functional limitations: 1. Inability to safely ambulate without assistive device 2. Increase completion time for mobility ADL performance 3. Increased fall risk Patient is assessed as a 85672 moderate complexity based on the following: History: 80-year-old male with impairment level findings, functional limitations, and past medical history as indicated above Examination: Demonstrable impairment in strength, balance, and mobility level with underlying impairments and functional limitations as documented above Presentation: Evolving Decision Makin moderate complexity Goals: N/A. PT evaluation and 1-2 treatment sessions only for functional mobility training using recommended AD and for HEP instruction. Plan of Care/Treatment Plan: N/A. PT evaluation and 1-2 treatment session only for functional mobility training using recommended AD and for HEP instruction. DISCHARGE RECOMMENDATIONS: Home when medically cleared by orthopedic surgeon. Recommend outpatient PT services in order to optimize functional mobility outcomes and facilitate return to independent community ambulation without an assistive device. TREATMENT CODE/TIME: 91543 x 20 minutes for 1 unit, 37385 x 11 minutes for 1 unit (16:42?17:13). Thank you for the opportunity to participate in the care of this patient. Elida Cole PT, DPT, CLT [facility] [place], [place]
[2025-07-01] MEDS: Tranexamic Acid 650 MG TAB 1300 MG PO (17:18)
== END 2025-07-01 17:55 | disposition home or self-care (01) ==
LOC: SUR 11:17
PROVIDERS: PCP Physician Assistant; Visit Provider Student in an Organized Health Care Education/Training Program
PROC: (CPT 27447; principal; 2025-07-01 13:30)
DX: M17.12 Unilateral primary osteoarthritis, left knee (principal)
CPT/HCPCS: 20985; 27447; 64447; 97162; 97530; C1776; J0665; J0666; J0690; J1100; J1596; J2003; J2250; J2371; J2401; J2405; J2704

== ENCOUNTER 2025-07-13 15:13 | Outpatient (CLI) | payer MEDICARE, SELFPAY ==
--- NOTE | 2025-07-13 13:00 | DI.RAD_ITS ---
Exam(s) XR KNEE LT 1V EXAM: XR KNEE LT 1V CLINICAL HISTORY: 1ST POST OP S/P L TKA. TECHNIQUE: 2D digital imaging was performed. COMPARISON: CR XR KNEE LT 1V from 04/27/2025 FINDINGS: Single lateral view There has been interval placement of a left knee prosthesis. On this lateral view position alignment of the components of the recently placed prosthesis are satisfactory. No fracture or loosening evident. No evidence of osteomyelitis. Vascular calcification in the femoral artery, popliteal artery, and runoff arteries of the calf is noted. IMPRESSION: Stable satisfactory appearance DATA REPOSITORY: RADIATION DOSE DELIVERED:
--- NOTE | 2025-07-13 13:00 | DI.RAD_ITS ---
Exam(s) XR STANDING ALIGNMENT EXAM: XR STANDING ALIGNMENT CLINICAL HISTORY: 1ST POST OP S/P L TKA. TECHNIQUE: 2D digital imaging was performed. COMPARISON: CR XR STANDING ALIGNMENT from 04/27/2025 FINDINGS: There has been interval placement of a left knee prosthesis which appears satisfactory. No fracture or loosening. Moderate degenerative changes in the lateral compartment of the opposite-right knee are again noted. Hips appear unremarkable. Ankles unremarkable. Bone density normal. No significant osseous lesions. IMPRESSION: As above. DATA REPOSITORY: RADIATION DOSE DELIVERED:
== END 2025-07-13 15:14 | disposition home or self-care (01) ==
LOC: DIORS 15:14
PROVIDERS: PCP Physician Assistant; Visit Provider Physician Assistant
DX: Z47.1 Aftercare following joint replacement surgery (principal); Z96.652 Presence of left artificial knee joint
CPT/HCPCS: 99024; 73560; 77073